=== PATIENT | female | born 1945 | race Caucasian/White ===

== ENCOUNTER 2018-11-08 09:43 | Emergency (ER) | payer OTHER ==
--- OUTSIDE RECORDS SUMMARY | 2018-11-08 09:52 | XMS REPORT ---
:1945 [facility] Address [address] [place] [address] [address] Care Team Providers Name Role Phone NAWAF LORENZO Unavailable Unavailable Problems This patient has no known problems. Allergies, Adverse Reactions, Alerts This patient has no known allergies or adverse reactions. Medications This patient has no known medications. Results Test Description Test Time Test Comments Text Results Atomic Results Result Comments TISSUE EXAM 2017-04-04 14:41:00 Surgical Pathology Report Case: [id number] Authorizing Provider: Nawaf Lorenzo MD Collected: 03/31/20172 Ordering Location: [facility] Received: 03/31/2017 1830 SERVICES Pathologist: Olivier Lozoya MD Specimens: A) - Lymph Node, right retroperitoneal lymph node B) - Kidney, Right, right kidney and ureter A. LYMPH NODE, RIGHT RETROPERITONEAL, EXCISION: - FRAGMENTED BENIGN LYMPH NODE TISSUE IDENTIFIEDB. KIDNEY AND URETER, RIGHT, TOTAL NEPHRECTOMY: - UROLITHIASIS - URETERAL MUCOSA WITH ACUTE AND CHRONIC INFLAMMATION - RENAL PARENCHYMA WITH GLOBAL GLOMERULOSCLEROSIS - ACUTE AND CHRONIC INFLAMMATION OF CALYCES AND RENAL PARENCHYMA - OBSTRUCTIVE HYDRONEPHROSIS - NEGATIVE FOR MALIGNANCY - ONE BENIGN LYMPH NODE (0/1) A. 23417P. 25646, 15058Stdoc ureteral tumor, hydronephrosisA. Right retroperitoneal lymph nodeB. Right kidney and ureterPart A: Received fresh labeled with the patient's information and "retroperitoneal lymph node" consists of multiple fragments of parrish-pink irregular soft tissue measuring 4.5 x 3 x 0.6 cm in aggregate. The specimen is entirely submitted in cassettes A1 and A2.Part B: Received fresh labeled for intraoperative consultation labeled with the patient's information and "right kidney and ureter" consists of a 251 gm, 10.5 x 4.5 x 3 cm right kidney with 13 x 8 x 4 cm attached adipose tissue and 13 cm in length attached ureter. The diameter of the ureter ranges from 0.3 cm in distal end to 2.3 cm in proximal end. Opening of the ureter reveals a 2.3 x 1.5 x 0.5 cm, parrish-like, irregular stone, which is located 8 cm from the resection margin. The ureter proximal to the stone is dilated. The ureteral mucosa around the stone is irregular and parrish-yellow. The remainder of the ureteral mucosa is parrish-white and smooth with no lesions or masses grossly seen. Bivalving of the kidney reveals dilated calyces and renal pelvis, which contain thick white fluid and two yellow-hayden calculi measuring 0.5 and 1 cm in greatest dimension. The corticomedullary junction is ill-defined. No discrete lesions or masses are grossly seen.Ink code: Blue-outer surface.Section code: B1, ureteral and vascular margins; B2-B7, ureter, adjacent to the stone; B8-B9, renal sinus; B10-B14, direct sales representative sections of kidney. GE/ewPART B, RIGHT KIDNEY AND URETER, NEPHROURETERECTOMY: - HYDRONEPHROSIS AND RENAL CALCULI IDENTIFIED (GROSS ONLY) - VERBALLY REPORTED TO DR. LORENZO AT 6:[address] Lind. BASIC METABOLIC PANEL 2017-04-03 06:11:00 Test Item Value Reference Range Comments SODIUM (BEAKER) (test 136 meq/L 136-145 pbed=415) POTASSIUM (BEAKER) (test 3.8 meq/L 3.5-5.1 shid=548) CHLORIDE (BEAKER) (test 104 meq/L 98-107 qrnd=304) CO2 (BEAKER) (test ipjf=761) 23 meq/L 22-29 BLOOD UREA NITROGEN (BEAKER) 10 mg/dL 7-21 (test pjda=616) CREATININE (BEAKER) (test 0.94 mg/dL 0.57-1.25 rehe=973) GLUCOSE RANDOM (BEAKER) 91 mg/dL 70-105 (test pwsc=062) CALCIUM (BEAKER) (test 10.7 mg/dL 8.4-10.2 wvjm=705) EGFR (BEAKER) (test 58 mL/min/1.73 sq m ESTIMATED GFR IS NOT aopz=6084) ACCURATE CREATININE CLEARANCE IN PREDICTING GLOMERULAR FILTRATION RATE. ESTIMATED GFR IS NOT APPLICABLE FOR DIALYSIS PATIENTS. HEMOGLOBIN AND [id number] 05:49:00 Test Item Value Reference Range Comments HEMOGLOBIN (BEAKER) (test xmki=639) 12.7 GM/DL 11.2-15.7 HEMATOCRIT (BEAKER) (test gtuv=764) 37.9 % 34.1-44.9 URINE [id number] 09:45:00 Test Item Value Reference Range Comments CULTURE (BEAKER) (test rcdp=2147) >100,000 col/mL skin jun BASIC METABOLIC [id number] 05:55:00 Test Item Value Reference Range Comments SODIUM (BEAKER) (test 136 meq/L 136-145 vabu=069) POTASSIUM (BEAKER) (test 3.9 meq/L 3.5-5.1 oray=412) CHLORIDE (BEAKER) (test 105 meq/L 98-107 zfuw=760) CO2 (BEAKER) (test 22 meq/L 22-29 qbrk=441) BLOOD UREA NITROGEN 11 mg/dL 7-21 (BEAKER) (test ywnp=485) CREATININE (BEAKER) (test 0.95 mg/dL 0.57-1.25 fiug=287) GLUCOSE RANDOM (BEAKER) 100 mg/dL 70-105 (test hqnb=811) CALCIUM (BEAKER) (test 9.6 mg/dL 8.4-10.2 hqbw=905) EGFR (BEAKER) (test 58 mL/min/1.73 sq m ESTIMATED GFR IS NOT digm=5580) ACCURATE CREATININE CLEARANCE IN PREDICTING GLOMERULAR FILTRATION RATE. ESTIMATED GFR IS NOT APPLICABLE FOR DIALYSIS PATIENTS. HEMOGLOBIN AND [id number] 05:34:00 Test Item Value Reference Range Comments HEMOGLOBIN (BEAKER) (test fdwl=350) 11.7 GM/DL 11.2-15.7 HEMATOCRIT (BEAKER) (test ntpm=668) 36.5 % 34.1-44.9 BASIC METABOLIC [id number] 05:30:00 Test Item Value Reference Range Comments SODIUM (BEAKER) (test 136 meq/L 136-145 uyex=421) POTASSIUM (BEAKER) (test 4.2 meq/L 3.5-5.1 ufqm=127) CHLORIDE (BEAKER) (test 107 meq/L 98-107 urkt=826) CO2 (BEAKER) (test 20 meq/L 22-29 ctlc=271) BLOOD UREA NITROGEN 16 mg/dL 7-21 (BEAKER) (test xsyj=551) CREATININE (BEAKER) (test 0.92 mg/dL 0.57-1.25 zesd=557) GLUCOSE RANDOM (BEAKER) 107 mg/dL 70-105 (test okma=918) CALCIUM (BEAKER) (test 8.9 mg/dL 8.4-10.2 znpj=061) EGFR (BEAKER) (test 60 mL/min/1.73 sq m ESTIMATED GFR IS NOT nqtg=8864) ACCURATE CREATININE CLEARANCE IN PREDICTING GLOMERULAR FILTRATION RATE. ESTIMATED GFR IS NOT APPLICABLE FOR DIALYSIS PATIENTS. HEMOGLOBIN AND [id number] 05:12:00 Test Item Value Reference Range Comments HEMOGLOBIN (BEAKER) (test gecc=041) 11.9 GM/DL 11.2-15.7 HEMATOCRIT (BEAKER) (test anqv=863) 37.6 % 34.1-44.9 BASIC METABOLIC [id number] 19:59:00 Test Item Value Reference Range Comments SODIUM (BEAKER) (test 139 meq/L 136-145 ltzt=256) POTASSIUM (BEAKER) (test 4.3 meq/L 3.5-5.1 qwbq=440) CHLORIDE (BEAKER) (test 111 meq/L 98-107 gkzr=706) CO2 (BEAKER) (test 20 meq/L 22-29 ebne=819) BLOOD UREA NITROGEN 17 mg/dL 7-21 (BEAKER) (test zctc=234) CREATININE (BEAKER) (test 1.02 mg/dL 0.57-1.25 cwfx=803) GLUCOSE RANDOM (BEAKER) 130 mg/dL 70-105 (test lcgi=759) CALCIUM (BEAKER) (test 9.2 mg/dL 8.4-10.2 czyr=860) EGFR (BEAKER) (test 53 mL/min/1.73 sq m ESTIMATED GFR IS NOT dyui=7377) ACCURATE CREATININE CLEARANCE IN PREDICTING GLOMERULAR FILTRATION RATE. ESTIMATED GFR IS NOT APPLICABLE FOR DIALYSIS PATIENTS. HEMOGLOBIN AND [id number] 19:41:00 Test Item Value Reference Range Comments HEMOGLOBIN (BEAKER) (test adwb=649) 12.6 GM/DL 11.2-15.7 HEMATOCRIT (BEAKER) (test mmef=865) 39.7 % 34.1-44.9 GRAM [id number] 14:23:00 Test Item Value Reference Range Comments GRAM STAIN RESULT (BEAKER) (test 3+ WBCs xyzd=3268) GRAM STAIN RESULT (BEAKER) (test 1+ gram positive rods ciqb=15151) CBC W/PLT COUNT & AUTO [id number] 13:01:00 Test Item Value Reference Range Comments WHITE BLOOD CELL COUNT (BEAKER) (test anwm=331) 12.7 K/ L 3.5-10.5 RED BLOOD CELL COUNT (BEAKER) (test rqbp=766) 4.58 M/ L 3.93-5.22 HEMOGLOBIN (BEAKER) (test pxjd=304) 13.8 GM/DL 11.2-15.7 HEMATOCRIT (BEAKER) (test qdsf=263) 41.4 % 34.1-44.9 MEAN CORPUSCULAR VOLUME (BEAKER) (test xywn=770) 90.4 fL 79.4-94.8 MEAN CORPUSCULAR HEMOGLOBIN (BEAKER) (test 30.1 pg 25.6-32.2 dcov=952) MEAN CORPUSCULAR HEMOGLOBIN CONC (BEAKER) (test 33.3 GM/DL 32.2-35.5 yvdq=312) RED CELL DISTRIBUTION WIDTH (BEAKER) (test 14.7 % 11.7-14.4 hkuv=795) PLATELET COUNT (BEAKER) (test xbub=069) 241 K/CU MM 150-450 MEAN PLATELET VOLUME (BEAKER) (test thcf=981) 10.8 fL 9.4-12.3 NUCLEATED RED BLOOD CELLS (BEAKER) (test 0 /100 WBC 0-0 rmit=267) NEUTROPHILS RELATIVE PERCENT (BEAKER) (test 73 % tboi=093) LYMPHOCYTES RELATIVE PERCENT (BEAKER) (test 19 % jlbf=188) MONOCYTES RELATIVE PERCENT (BEAKER) (test 5 % cuvu=369) EOSINOPHILS RELATIVE PERCENT (BEAKER) (test 1 % nlri=761) BASOPHILS RELATIVE PERCENT (BEAKER) (test 1 % wmji=559) NEUTROPHILS ABSOLUTE COUNT (BEAKER) (test 9.26 K/ L 1.56-6.13 jtqp=469) LYMPHOCYTES ABSOLUTE COUNT (BEAKER) (test 2.45 K/ L 1.18-3.74 ofso=266) MONOCYTES ABSOLUTE COUNT (BEAKER) (test 0.68 K/ L 0.24-0.36 ssoc=168) EOSINOPHILS ABSOLUTE COUNT (BEAKER) (test 0.15 K/ L 0.04-0.36 jicf=413) BASOPHILS ABSOLUTE COUNT (BEAKER) (test 0.07 K/ L 0.01-0.08 kwen=884) IMMATURE GRANULOCYTES-RELATIVE PERCENT (BEAKER) 1 % 0-1 (test fqsg=5777) URINALYSIS W/ [id number] 12:25:00 Test Item Value Reference Range Comments COLOR (BEAKER) (test kscu=455) Yellow CLARITY (BEAKER) (test awiy=136) Hazy SPECIFIC GRAVITY UA (BEAKER) (test 1.014 1.001-1.035 kdvs=536) PH UA (BEAKER) (test kynx=759) 6.5 5.0-8.0 PROTEIN UA (BEAKER) (test qgka=357) 30 mg/dL Negative GLUCOSE UA (BEAKER) (test erjs=931) Negative Negative KETONES UA (BEAKER) (test fyer=837) Negative Negative BILIRUBIN UA (BEAKER) (test Negative Negative wswu=067) BLOOD UA (BEAKER) (test sdls=898) Small Negative NITRITE UA (BEAKER) (test smrx=562) Negative Negative LEUKOCYTE ESTERASE UA (BEAKER) Large Negative (test hjmp=875) UROBILINOGEN UA (BEAKER) (test 0.2 mg/dL 0.2-1.0 nxes=016) RBC UA (BEAKER) (test lcpn=135) 17 /HPF WBC UA (BEAKER) (test vspa=779) 348 /HPF BACTERIA (BEAKER) (test mrrq=238) Few SQUAMOUS EPITHELIAL (BEAKER) (test 4 /HPF qbkl=567) SOURCE(BEAKER) (test bjxk=1422) Urine, Straight Catheter PROTHROMBIN [id number] 11:26:00 Test Item Value Reference Range Comments PROTIME (BEAKER) (test kgrw=863) 14.2 seconds 11.7-14.7 INR (BEAKER) (test flym=896) 1.1 <=5.9 RECOMMENDED COUMADIN/WARFARIN INR THERAPY RANGESSTANDARD DOSE: 2.0 - 3.0 Includes: PROPHYLAXIS forvenous thrombosis, systemic embolization; TREATMENT for venous thrombosis and/or pulmonary embolus.HIGH RISK: Target INR is 2.5-3.5 for patients with mechanical heart valves.[id number] 11:26:00 Test Item Value Reference Range Comments PARTIAL THROMBOPLASTIN TIME (BEAKER) (test 31.0 seconds 22.5-36.0 ookw=942) [id number] 09:54:00 Test Item Value Reference Range Comments SODIUM (BEAKER) (test lmwd=736) 140 meq/L 136-145 POTASSIUM (BEAKER) (test ouwo=326) 4.7 meq/L 3.5-5.1 CHLORIDE (BEAKER) (test mspl=291) 106 meq/L 98-107 CO2 (BEAKER) (test vfip=959) 26 meq/L 22-29 [id number] 09:54:00 Test Item Value Reference Range Comments GLUCOSE RANDOM (BEAKER) (test scha=142) 96 mg/dL 70-105 Effective 07/16/2014: Reference Range Change-Adult onlyNew: 70-105 Previous : 70-110BUN AND [id number] 09:54:00 Test Item Value Reference Range Comments BLOOD UREA NITROGEN 21 mg/dL 7-21 (BEAKER) (test xqri=586) CREATININE (BEAKER) (test 1.01 mg/dL 0.57-1.25 kejs=474) EGFR (BEAKER) (test 54 mL/min/1.73 sq m ESTIMATED GFR IS NOT zlzq=0579) ACCURATE CREATININE CLEARANCE IN PREDICTING GLOMERULAR FILTRATION RATE. ESTIMATED GFR IS NOT APPLICABLE FOR DIALYSIS PATIENTS. [id number] 09:20:00 Test Item Value Reference Range Comments HEMOGLOBIN (BEAKER) (test mnyb=563) 13.9 GM/DL 12.0-15.0 PLATELET [id number] 09:20:00 Test Item Value Reference Range Comments PLATELET COUNT (BEAKER) (test cvcg=475) 231 K/CU MM 150-430
--- OUTSIDE RECORDS SUMMARY | 2018-11-08 09:52 | XMS REPORT | Clinical Summary ---
:1945 Author Organization [facility] Address [address] [place] [address] Care Team Providers Name Role Phone Asked, No Pcp Primary Care Provider Unavailable Allergies Not on File Medications Medication Sig Dispensed Refills Start Date End Date Status lisinopril Take 20 mg by 0 Active (PRINIVIL,ZESTRIL) mouth daily. 20 mg tablet atorvastatin Take 20 mg by 0 Active (LIPITOR) 20 MG mouth daily. tablet levothyroxine Take 100 mcg 0 Active (SYNTHROID, LEVOXYL) by mouth 100 mcg tablet every morning. atorvastatin Take 10 mg by 0 Active (LIPITOR) 10 MG mouth. tablet aspirin (ECOTRIN) 81 Take 81 mg by 0 Active MG enteric coated mouth daily. tablet sertraline (ZOLOFT) Take 1 tablet 90 tablet 3 08/15/2018 Active 100 MG tablet (100 mg total) by mouth every morning. QUEtiapine Take 1 tablet 90 tablet 2 08/15/2018 11/13/2018 Active (SEROquel) 200 MG (200 mg tablet total) by mouth nightly for 90 days. QUEtiapine Take 1 tablet 90 tablet 5 09/12/2017 12/11/2017 (SEROquel) 200 MG (200 mg tablet total) by mouth nightly for 90 days. sertraline (ZOLOFT) Take 1 tablet 90 tablet 3 09/12/2017 08/15/2018 Discontinued 100 MG tablet (100 mg total) by mouth every morning. Active Problems Not on file Encounters Date Type Specialty Care Team Description 10/23/2018 Office Visit Psychiatry Ezequiel Trujillo, Schizoaffective disorderMD unspecified type (HCC) 10/20/2018 Telephone Ezequiel Madrigal MD 09/20/2018 Telephone Ezequiel Madrigal MD 08/15/2018 Orders Only Psychiatry Ezequiel Trujillo MD after 11/07/2017 Social History Tobacco Use Types Packs/Day Years Used Date Never Assessed Sex Assigned at Date Recorded Not on file Job Start Date Occupation Industry Not on file Not on file Not on file Travel History Travel Start Travel End No recent travel history available. Last Filed Vital Signs Not on file Plan of Treatment Date Type Specialty Care Team Description 10/23/2019 Office Visit Psychiatry Ezequiel Trujillo MD [address] [facility] [address] [place] [address] Health Maintenance Due Date Last Done Comments BREAST CANCER SCREENING 11/10/1993 COLON CANCER SCREENING 11/10/1993 SHINGLES VACCINES (#1) 11/10/1993 65+ PNEUMOCOCCAL VACCINE (1 of 2 - PCV13) 11/10/2008 PNEUMOCOCCAL POLYSACCHARIDE VACCINE AGE 65 AND OVER 11/10/2008 INFLUENZA VACCINE 03/29/2018 Results Not on fileafter 11/07/2017 Insurance Payer Benefit Plan / Group Subscriber ID Type Phone Address MEDICARE MEDICARE PART A AND B xxxxxxxxxx Medicare [place], [place] AETNA AETNA PPO OPEN CHOICE xxxxxxxxx PPO Advance Directives Patient has advance care planning documents on file. For more information, please contact:[place] [address] [place] [id number]
--- OUTSIDE RECORDS SUMMARY | 2018-11-08 09:52 | XMS REPORT | Clinical Summary ---
:1945 Author Organization [facility] Address [address] [place] [address] Care Team Providers Name Role Phone David Pfeiffer MD Primary Care Provider Allergies No Known Allergies Medications Medication Sig Dispensed Refills Start Date End Date Status atorvastatin (LIPITOR) Take 10 mg by 0 Active 10 MG tablet mouth daily. levothyroxine Take 100 mcg by 0 Active (SYNTHROID, LEVOTHROID) mouth Every 100 MCG tablet morning on an empty stomach. QUEtiapine (SEROQUEL Take by mouth 0 Active XR) 150 mg Tb24 nightly. sertraline (ZOLOFT) 100 Take 100 mg by 0 Active MG tablet mouth daily. acetaminophen-codeine Take 1 tablet by 30 tablet 0 04/02/2017 Active (TYLENOL #3) 300-30 mg mouth every 4 per tablet (four) hours as needed for Pain Do not combine with over the counter Tylenol. Max Daily Amount: 6 tablets docusate sodium Take 1 capsule 50 capsule 0 04/02/2017 Active (COLACE) 100 MG capsule (100 mg total) by mouth 2 (two) times daily. Active Problems Problem Noted Date Obstruction of kidney 03/31/2017 Renal mass 03/31/2017 Social History Tobacco Use Types Packs/Day Years Used Date Current Every Day Smoker 1 50 Tobacco Cessation: Ready to Quit: No; Counseling Given: Yes Alcohol Use Drinks/Week oz/Week Comments No Sex Assigned at Date Recorded Not on file Job Start Date Occupation Industry Not on file Not on file Not on file Travel History Travel Start Travel End No recent travel history available. Last Filed Vital Signs Not on file Plan of Treatment Not on file Results Not on fileafter 11/07/2017 Insurance Payer Benefit Plan / Group Subscriber ID Type Phone Address MEDICARE MEDICARE A B xxxxxxxxxx Medicare AETNA - [place] CARE AETNA INDEMNITY NON CONTR xxxxxxxxx Comm Advance Directives For more information, please contact:[address] [phone] Code Status Date Activated Date Inactivated Comments Full Code 03/31/2017 10:42 PM 04/03/2017 6:50 PM This code status was determined by: Patient
--- NOTE | 2018-11-08 10:42 | ER ---
Nurse's Notes [facility] Name: Naty Holder Age: 72 yrs Sex: Female : 1945 Arrival Date: 11/08/2018 Time: 09:45 Bed 15 Private MD: Diagnosis: Unspecified abdominal hernia Presentation: 11/08 10:26 Presenting complaint: Patient states: lump on right side of abdomen for approximately 6 dm5 months. pt is in not pain at this time. Transition of care: patient was not received from another setting of care. Onset of symptoms was April 2018. Risk Assessment: Do you want to hurt yourself or someone else? Patient reports no desire to harm self or others. Initial Sepsis Screen: Does the patient meet any 2 criteria? No. Patient's initial sepsis screen is negative. Does the patient have a suspected source of infection? No. Patient's initial sepsis screen is negative. Care prior to arrival: None. 10:26 Method Of Arrival: Ambulatory dm5 10:26 Acuity: MAURICE 3 dm5 Triage Assessment: 10:31 General: Appears in no apparent distress. Behavior is calm, cooperative. Pain: Denies dm5 pain. Historical: - Allergies: 10:31 No Known Allergies; dm5 - Home Meds: 10:31 lisinopril 10 mg Oral tab 1 tab once daily [Active]; atorvastatin 20 mg oral tab 1 tab dm5 once daily [Active]; Seroquel 200 mg Oral tab 1 tab nightly [Active]; sertraline 100 mg oral tab 1 tab once daily [Active]; levothyroxine 112 mcg tab 1 tab once daily [Active]; - PMHx: 10:31 Hypertension; Hyperlipidemia; Thyroid problem; Depression; dm5 - PSHx: 10:31 right kidney removed; left hip replacement; Hysterectomy; dm5 Vital Signs: 10:31 BP 143 / 78; Pulse 89; Resp 20; Temp 97.6; Pulse Ox 95% on R/A; Weight 83.91 kg (R); dm5 Height 5 ft. 5 in. (165.10 cm); 10:31 Body Mass Index 30.79 (83.91 kg, 165.10 cm) dm5 ED Course: 09:45 Patient arrived in ED. as 10:22 Damian Zarco PA is PHCP. jmm 10:22 Daniel Mathews MD is Attending Physician. m 10:28 Triage completed. dm5 10:31 Arm band placed on right wrist. dm5 10:40 Noé Engle MD is Referral Physician. [facility] Administered Medications: No medications were administered Outcome: 10:42 Discharge ordered by MD. [facility] 11:04 Discharged to home ambulatory, with family. sg 11:04 Condition: good 11:04 Discharge instructions given to patient, family, Instructed on discharge instructions, follow up and referral plans. safety practices, Demonstrated understanding of instructions, follow-up care. 11:05 Patient left the ED. sg Signatures: Bibi Bill, RN RN Sven Schroeder RN RN Damian Willis PA PA jmm Martinez, Amelia as
--- NOTE | 2018-11-08 10:42 | EDPHYS ---
Physician Documentation [facility] Name: Naty Holder Age: 72 yrs Sex: Female : 1945 Arrival Date: 11/08/2018 Time: 09:45 Bed 15 Private MD: ED Physician Daniel Mathews HPI: 11/08 10:30 This 72 yrs old Female presents to ER via Ambulatory with complaints of jmm Abdominal Hernia. 10:30 The patient presents with abdominal mass. Onset: The symptoms/episode began/occurred 6 jmm month(s) ago. The symptoms do not radiate. Associated signs and symptoms: Pertinent negatives: nausea and vomiting, chest pain, constipation, fever, nausea. This is a 72 year old female with a history of htn, hlp, that presents to the ED with complaints of abdominal mass for the past 6 months. Denies pain, denies vomiting, denies diarrhea. Symptoms are alleviated with lying down. . Historical: - Allergies: 10:31 No Known Allergies; dm5 - Home Meds: 10:31 lisinopril 10 mg Oral tab 1 tab once daily [Active]; atorvastatin 20 mg oral tab 1 tab dm5 once daily [Active]; Seroquel 200 mg Oral tab 1 tab nightly [Active]; sertraline 100 mg oral tab 1 tab once daily [Active]; levothyroxine 112 mcg tab 1 tab once daily [Active]; - PMHx: 10:31 Hypertension; Hyperlipidemia; Thyroid problem; Depression; dm5 - PSHx: 10:31 right kidney removed; left hip replacement; Hysterectomy; dm5 ROS: 10:30 Constitutional: Negative for fever, chills, and weight loss, Cardiovascular: Negative jmm for chest pain, palpitations, and edema, Respiratory: Negative for shortness of breath, cough, wheezing, and pleuritic chest pain. 10:30 Abdomen/GI: Positive for Negative for vomiting, diarrhea. 10:30 All other systems are negative. Exam: 10:30 Constitutional: This is a well developed, well nourished patient who is awake, alert, jmm and in no acute distress. Head/Face: atraumatic. Eyes: EOMI, no conjunctival erythema appreciated ENT: Moist Mucus Membranes Neck: Trachea midline, Supple Chest/axilla: Normal chest wall appearance and motion. Cardiovascular: Regular rate and rhythm. No edema appreciated Respiratory: Normal respirations, no respiratory distress appreciated 10:30 Skin: General appearance color normal MS/ Extremity: Moves all extremities, no obvious deformities appreciated, no edema noted to the lower extremities Neuro: Awake and alert, normal gait Psych: Behavior is normal, Mood is normal, Patient is cooperative and pleasant 10:30 Abdomen/GI: Inspection: Palpation: abdomen is soft and non-tender, in all quadrants, soft, in all quadrants, reduce able hernia noted on physical exam. 10:30 Back: ROM is normal, painless. Vital Signs: 10:31 BP 143 / 78; Pulse 89; Resp 20; Temp 97.6; Pulse Ox 95% on R/A; Weight 83.91 kg (R); dm5 Height 5 ft. 5 in. (165.10 cm); 10:31 Body Mass Index 30.79 (83.91 kg, 165.10 cm) dm5 MDM: 10:30 Patient medically screened. namrata 10:30 Data reviewed: vital signs, nurses notes. Counseling: I had a detailed discussion with yoselin the patient and/or guardian regarding: the historical points, exam findings, and any diagnostic results supporting the discharge/admit diagnosis, the need for outpatient follow up, to return to the emergency department if symptoms worsen or persist or if there are any questions or concerns that arise at home. ED course: PE findings consistent with hernia. Easily reduceable. I do not suspect incarceration or strangulation. Family is given return precautions. I discussed the patient with Dr. Engle whom will follow up with patient in clinic. I discussed this with the patient and the family whom agree with the plan of care. . Administered Medications: No medications were administered Disposition: 12:08 Co-signature as Attending Physician, Daniel Mathews MD I agree with the assessment and namrata plan of care. Disposition: 11/08/18 10:42 Discharged to Home. Impression: Unspecified abdominal hernia. - Condition is Stable. - Discharge Instructions: Hernia, Adult. - Medication Reconciliation Form, Thank You Letter, Antibiotic Education, Prescription Opioid Use form. - Follow up: Noé Engle MD; When: 2 - 3 days; Reason: Recheck today's complaints, Continuance of care, Re-evaluation by your physician. Signatures: Bibi Bill, CHAPARRO [place] dm5 Dotson, SvenCHAPARRO RN, Corey, MD MD cha Mickail, Joel, JAI wyatt Corrections: (The following items were deleted from the chart) 11:05 10:42 11/08/2018 10:42 Discharged to Home. Impression: Unspecified abdominal hernia. sg Condition is Stable. Forms are Medication Reconciliation Form, Thank You Letter, Antibiotic Education, Prescription Opioid Use. Follow up: Noé Engle; When: 2 - 3 days; Reason: Recheck today's complaints, Continuance of care, Re-evaluation by your physician. yoselin
[2018-11-08 11:15] VITALS: BP 143/78; TEMP 97.6; O2SAT 95
== END 2018-11-08 11:05 | disposition home or self-care (01) ==
LOC: ER 09:43
DX: K46.9 Unspecified abdominal hernia without obstruction or gangrene (principal); I10 Essential (primary) hypertension; E78.5 Hyperlipidemia, unspecified; F32.9 Major depressive disorder, single episode, unspecified
CPT/HCPCS: 99281